=== PATIENT | female | born 1990 | race Two or more races ===

== ENCOUNTER 2020-01-08 23:37 | Emergency (ER) | payer MEDICAID, OTHER ==
[~2020-01-08] VITALS: Ht 160 cm; Wt 61.2 kg
--- NOTE | 2020-01-09 00:34 | NUR ---
BROUGHT TO CT AND BACK
--- NOTE | 2020-01-09 01:57 | NUR ---
Patient is resting comfortably in bed with eyes closed. Easily aroused. VSS
--- NOTE | 2020-01-09 03:49 | NUR ---
SPOKE TO PT. [id number]. STATED "DID I OVERDOSE" PLACED ON MONITOR AND PULSE OX. VSS. NO ACUTE DISTRESS NOTED.
--- NOTE | 2020-01-09 04:53 | NUR ---
PT ASLEEP. ON MONITOR AND PULSE OX.
[2020-01-09 05:55] VITALS: BP 129/71
--- NOTE | 2020-01-09 05:55 | NUR ---
Patient discharged to home in stable condition. Written and verbal after care instructions given. Patient verbalizes understanding of instruction and RX. Pt ambualted with steady gait. vss. [id number].
== END 2020-01-09 05:56 | disposition home or self-care (01) ==
LOC: ER 23:38 → EDBD 23:38 → ER 01-09 05:56
DX: T50.7X1A Poisoning by analeptics and opioid receptor antagonists, accidental (unintentional), initial encounter (principal); R51 Headache; Y92.89 Other specified places as the place of occurrence of the external cause
CPT/HCPCS: 70450-TC